=== PATIENT | female | born 1940 | race Caucasian/White ===

== ENCOUNTER 2017-05-15 17:22 | Emergency (ER) | payer MEDICARE, OTHER ==
[~2017-05-15] VITALS: Ht 154.9 cm; Wt 72.1 kg
[2017-05-15] MEDS ORDERED: CLEOCIN HCL300 MG PO (17:46)
[2017-05-15] MEDS ORDERED: NORCO 5-325 TA1 EACH PO (17:46)
== END 2017-05-15 18:32 | disposition home or self-care (01) ==
LOC: ED 17:22
DX: K04.7 Periapical abscess without sinus (principal); Z88.0 Allergy status to penicillin; Z88.2 Allergy status to sulfonamides; Z88.1 Allergy status to other antibiotic agents
CPT/HCPCS: 99283

== ENCOUNTER 2017-07-31 11:48 | Inpatient (IN) | payer MEDICARE, OTHER ==
[~2017-07-31] VITALS: Ht 154.9 cm; Wt 72.1 kg
--- OUTSIDE RECORDS SUMMARY | ~2017-07-31 | XMS | Clinical Summary ---
Demographics + + + | Address | [address] | | | [place] [address] | + + + | Home Phone | | + + + | Preferred Language | Unknown | + + + | Marital Status | | + + + | Buddhist Affiliation | Unknown | + + + | Race | White | + + + | Ethnic Group | Not or | + + + Author + + + | Organization | Unknown | + + + | Address | Unknown | + + + | Phone | Unavailable | + + + Care Team Providers + +------+ + | Care Project Systems Engineer Name | Role | Phone | + +------+ + PP | Unavailable | + +------+ + Source Comments TU is fully live on both [facility] Ambulatory and [facility] InPatient.[facility] Allergies Not on File Current Medications Not on file Active Problems Not on file Social History + +-------+ +--------+------+ | Tobacco Use | Types | Packs/Day | Years | Date | | | | | Used | | + +-------+ +--------+------+ | Never Assessed | | | | | + +-------+ +--------+------+ + + + | Sex Assigned at | Date Recorded | | | | + + + | Not on file | | + + + Plan of Treatment + + + + + | Health Maintenance | Due Date | Last Done | Comments | + + + + + | INFLUENZA VACCINE | | | | | (FLU SHOT) | 7 | | | + + + + + Results Not on filefrom Last 3 Months"
[~2017-07-31 11:48] MED LIST: CLEOCIN HCL300 MG PO; NORCO 5-325 TA1 EACH PO
[2017-09-03] MEDS ORDERED: TYLENOL325 MG PO (15:05)
[2017-09-03] MEDS ORDERED: CALCIUM500 MG PO (15:05)
[2017-09-03] MEDS ORDERED: CARVEDILOL12.5 MG PO (15:06)
[2017-09-03] MEDS ORDERED: ESCITALOPRAM OX20 MG PO (15:06)
[2017-09-03] MEDS ORDERED: CIPRO500 MG PO (15:06)
[2017-09-03] MEDS ORDERED: LEXAPRO20 MG PO (15:07)
[2017-09-03] MEDS ORDERED: LEVOTHYROXINE125 MCG PO (15:07)
[2017-09-03] MEDS ORDERED: MELOXICAM15 MG PO (15:07)
[2017-09-03] MEDS ORDERED: MULTIVITAMINS1 EAC8 PO (15:07)
[2017-09-03] MEDS ORDERED: PROPRANOLOL HCL60 M1 PO (15:08)
[2017-09-03] MEDS ORDERED: PRILOSEC OTC20 MG PO (15:08)
[2017-09-03] MEDS ORDERED: VITAMIN C500 M1 PO (15:09)
[2017-09-03] MEDS ORDERED: VITAMIN D2000 UNI1 PO (15:09)
--- NOTE | 2017-09-03 17:42 | NUR ---
PREADMIT PT NOTE THIS IS A 77 YEAR OLD FEMALE BEING ADMITTED 09/14/17 FOR A RIGHT TOTAL HIP REPLACEMENT PERFORMED BY DR DARCIE SHULTZ. 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 IN [facility]. SHE IS PLANNING ON HER SON BEING HER TO CARE FOR SO SHE CAN HEAL. SHE IS PLANNING ON GOING TO THE [facility] AT [facility] OP PT TOMORROW AND THEN AFTER SURGERY GOING THERE FOR PT. PT HAS A WALK IN SHOWER WITH A BENCH AND HANDHELD SHOWER HEAD. PT IS GOING TO GET A TOILET SEAT RISER. PT HAS REQUESTED ASSISTANCE WITH A FRONT WHEELED WALKER FROM [facility]. I INFORMED HER THIS WOULDN'T BE A PROBLEM. PT DENIED FURTHER QUESTIONS. I TOLD HER I WOULD FOLLOW HER DURING HER STAY IN THE HOSPITAL.
--- NOTE | 2017-09-14 08:46 | NUR ---
09/14/17 0846 Maritza Farah 0833 TO PACU, NONRESPIONSIVE TO VOICE. ORAL AIRWAY IN PLACE. ADDITIONAL AIRWAY ASSIST NEEDED. 0840 NO CHANGE IN PT STATUS 0845 XRAY TO BEDSIDE. CONT AIRWAY ASSIST. NON RESPONSIVE TO VERBAL.
--- NOTE | 2017-09-14 09:21 | NUR ---
MET WITH PT'S SIS IN LAW. FEELS VERY CONFIDENT IN CARE FOR PT HERE. SEEMS TO BE VERY COMFORTABLE HERE. WILL FOLLOW NEEDED
--- NOTE | 2017-09-14 10:51 | NUR ---
PT VERY SLEEPY PULLING LOW TIDAL VOLUMES EVEN ON BIPAP HAD TO INCREASE SETTING AND INCREASED RESPIRATORY RATE, Dr Wood and Special Effects Makeup Artist consulted for patient narcan given and patient tidal volumes and mv increased with good chest rise and fall will continue to monitor if patient becomes apnic again we will obtain blood gases and furthur evaluate if patient need a higher level of support. Rn at bedside will continue to closely monitor this patient .
--- NOTE | 2017-09-14 12:08 | NUR ---
77 YEAR OLD FEMALE PATIENT ADMITTED TO CCU FROM PACU UNDER DR. SHULTZ WITH DX OF TOTAL R HIP ARTHROPLASTY. WAS SLOW TO WAKE POST OP AND WAS GIVEN NARCAN IN PACU, AND PLACE ON BIPAP. IS CURRENTLY ON BIPAP AT 15/10 RATE 16, FIO2 40%. IS ABLE TO FOLLOW COMMANDS. IVF PATIENT TO RIGHT HAND. CRYO CUFF IN PALCE TO RIGHT HIP. ABDUCTOR IS IN PLACE.
--- NOTE | 2017-09-14 13:58 | NUR ---
PT PLACED IN CCU 128 POST-OP FOR CLOSER OBSERVATION. O2 MASK ON, PT NOT AWAKE, BUT AWARE OF MASK. FAMILY PRESENT, SEEM TO BE DEALING APPROPRIATELY. WILL CONTINUE TO FOLLOW
--- NOTE | 2017-09-14 14:10 | NUR ---
BIPAP OFF TO DO ORAL CARE, WITHIN 1 MIN O2 SAT DOWN TO 53. PATIENT IS NOT AWARE OF TREATMENT WILL FOLLOW SOME COMMANDS. NOT SAYING ANY WORDS AT THIS TIME.
--- NOTE | 2017-09-14 16:11 | NUR ---
NARCAN GTT HUNG AT 0,3 MG/HR. EQUALS 37.5 ML HR. FAMILY IN ROOM. ASSESSMENT UNCHANGED. WHITTAKER PATENT. REMAINS ON BIPAP 18/10, FIO2-40% RR-22.
--- NOTE | 2017-09-14 17:00 | NUR ---
IS MORE AWAKE NOW. ORAL CARE GIVEN. DR. YEBOAH HERE TO SEE. NO FUTHER ORDERS NOTED AT THIS TIME.
--- NOTE | 2017-09-14 17:10 | NUR ---
ABG RESULTS, PH-7.31, PCO2-58.9, PO2-114, HCO3-28.6. DR. YEBOAH HERE.
--- NOTE | 2017-09-14 17:34 | NUR ---
BACK ON BIPAP.
--- NOTE | 2017-09-14 18:12 | NUR ---
DR. YEBOAH UPDATED ON PATIENT STATUS. NO FUTHER CHANGES.
--- NOTE | 2017-09-14 18:38 | NUR ---
MORE AWAKE, ORAL CARE GIVEN. DENEIS PAIN OR NAUSEA.
--- NOTE | 2017-09-14 19:11 | NUR ---
NO CHANGES, REPORT GIVEN.
--- NOTE | 2017-09-14 19:55 | NUR ---
AWAKENS EASILY AND ABLE TO STAY AWAKE. OFF CPAP FOR NOW. ABLE TO TAKE SMALL AMT WATER, WANTED TO DRINK MORE BUT ADVISED TO START SLOW.
--- NOTE | 2017-09-14 21:21 | NUR ---
REPOSITIONED TO BACK, NO C/O. NARCAN DECREASED TO 0.4MG/HR. GIVEN WATER AND JIMENEZ WELL.
--- NOTE | 2017-09-14 23:32 | NUR ---
AWAKENS EASILY BUT OTHERWISE SLEEPS MOST OF TIME. REPOSITIONED.
--- NOTE | 2017-09-15 02:29 | NUR ---
NARCAN TITRATED OFF AT 0140. PT AWAKENS EASILY. RR 16.
--- NOTE | 2017-09-15 03:31 | NUR ---
WHEN FIRST AWAKE ASKERE WHERE NAHED (HER ) WAS. REMINDED WAS IN HOSPITAL. ORIENTED AFTER THAT. DENIES PAIN. REPOSITIONED TO L SIDE. 02 CHANGED TO 2 L NC. ENCOURAGED TO DEEP BREATH AND COUGH. CRYO CUFF CONT TO BE IN PLACE TO R HIP. PT DOES C/O GENERALIZED ITCHING. NO RASH NOTED. EXPLAINED WAS POSS SIDE EFFECT OF MEDS.
--- NOTE | 2017-09-15 06:42 | NUR ---
AWAKE ALERT, TALKATIVE. FEELS LIKE GOT A GREAT NIGHTS SLEEP. WAS CONCERNED ABOUT HIP PAIN WITH MOVEMENT. REASURED THAT PAIN CONTROL WAS PLANNED AND TO PLEASE LET US KNOW IF SHE HAD PAIN. PT FELT BETTER.
--- NOTE | 2017-09-15 07:30 | NUR ---
BEDSIDE REPORT RECIEVED. PATIENT IS AWAKE AND W/O C/O.
--- NOTE | 2017-09-15 08:30 | NUR ---
DRESSING TO RIGHT HIP IS INTACT. NO DRAINAGE NOTED. CYRO CUFF HAS BEEN IN PLACE.
--- NOTE | 2017-09-15 08:49 | NUR ---
SITTING UP IN BED WATCHING TV. DENEIS PAIN. TOOK BREAKFAST WELL. ROUTINE MEDS GIVEN.
--- NOTE | 2017-09-15 09:32 | NUR ---
PHYS THERAPY HERE TO WORK WITH PATIENT.
--- NOTE | 2017-09-15 09:35 | NUR ---
SITTING IN CHAIR. STATES SHE FEELS BETTER. IS SOMEWHAT FRUSTRATED REGARDING ABILITY TO FIND WORDS SHE WANTS TO SAY. FAMILY MEMBERS ARE IN ROOM.
--- NOTE | 2017-09-15 12:29 | NUR ---
REMAINS IN CHAIR IS EATING LUNCH. OKAY TO TRANSFER TO MEDICAL FLOOR TODAY. IVF TO SL EARLIER. URINE REMAINS ORANGE IN COLOR.
--- NOTE | 2017-09-15 13:09 | NUR ---
PT SITTING IN CHAIR, TODAY ON RM AIR. AWAKE AND ALERT. LOTS OF FAMILY PRESENT. PT STATED SHE FHAS NO PAIN, WHICH IS SOMETHING SHE MENTIONED THAT SHE HAS NOT EXPERIENCED FOR A LONG TIME. LUNCH CAME, SHE SEEMED INTERESTED-I EXTENDED A BLESSING AND WILL RETURN. SHE SAID SHE WOULD LIKE THAT
--- NOTE | 2017-09-15 15:00 | NUR ---
AMBULATE TO ROOM 111 FROM 127 USING WALKER WITH PHYS THERAPY AND RN WITH PATIENT.
--- NOTE | 2017-09-15 15:15 | NUR ---
REPORT TO MED SURG.
--- NOTE | 2017-09-15 15:24 | NUR ---
PATIENT WALKED OVER FROM CCU WITH WALKER AND STANDBY ASSIST. PATIENT DENIES PAIN, IS NOW IN BED WITH KRYO CUFF, O2 AT 2L WITH DIM LUNG BASES..PATIENT ENCOURAGED TO USE I/S EVERY HOUR AND DOES A GOOD RETURN DEMONSTRATION BUT HAS TO BE REMINDED ON CORRECT USE. PATIENT HAS NOTABLE TREMOR AT BASELINE, REPORTS URINARY INCONTINANCE BASELINE WELL. WHITTAKER CATHETER IS IN PLACE.
--- NOTE | 2017-09-15 18:26 | NUR ---
PATIENT SITTING IN BED, SON AND IN ROOM. VITALS DONE. (SON SEEMS TO "JOKE" BUT IS A BIT RUDE AND SHORT WITH PATIENT) CALL LIGHT IN REACH NO OTHER NEEDS.
--- NOTE | 2017-09-15 18:55 | NUR ---
RECEIVED REPORT FROM RN. PATIENT IS RESTING IN BED, BREATHING IS EVEN AND UNLABORED. DENIES NEEDS AT THIS TIME. FAMILY AT BEDSIDE, CALL LIGHT WITHIN REACH.
--- NOTE | 2017-09-15 19:45 | NUR ---
PATIENT RESTING COMFORTABLY IN BED, BREATHING IS EVEN AND UNLABORED ON 2L O2 VIA NC. DENIES NEEDS AT THIS TIME. PATIENT REPORTS 0/10 PAIN. ASSESSMENT DONE, MEDICATION GIVEN. FAMILY AT BEDSIDE, CALL LIGHT WITHIN REACH.
--- NOTE | 2017-09-15 22:23 | NUR ---
PATIENT RESTING COMFORTABLY IN BED, BREATHING IS EVEN AND UNLABORED. TYLENOL GIVEN. REPORTS 0/10 PAIN. DENIES NEEDS AT THIS TIME. CALL LIGHT WITHIN REACH.
--- NOTE | 2017-09-16 00:06 | NUR ---
PATIENT CALLING OUT, UPON ENTERING ROOM, PATIENT IS SLOUCHED IN BED, APPEARS TO BE UNCOMFORTABLE. WITH ASSISTANCE FROM SECOND RN, PATIENT REPOSITIONED IN BED FOR COMFORT. PATIENT STATES HE FEELS MORE COMFORTABLE. DENIES NEEDS AT THIS TIME. CALL LIGHT WITHIN REACH, BED ALARM ON.
--- NOTE | 2017-09-16 01:23 | NUR ---
PATIENT RESTING COMFORTABLY IN BED, BREATHING IS EVEN AND UNLABORED. FLACC SCORE OF 0. CALL LIGHT WITHIN REACH.
--- NOTE | 2017-09-16 04:00 | NUR ---
PATIENT RESTING COMFORTABLY IN BED, BREATHING IS EVEN AND UNLABORED. DENIES NEEDS AT THIS TIME. REPORTS 0/10 PAIN. CALL LIGHT WITHIN REACH. CRYO-CUFF REFILLED. CALL LIGHT WITHIN REACH, ALL ORDERS IN PLACE.
--- NOTE | 2017-09-16 04:13 | NUR ---
PATIENT'S NIGHT WAS UNEVENTFUL. SHE HAS BEEN RESTING COMFORTABLY IN BED THROUGHOUT SHIFT. VSS, URINE OUTPUT QS. NO COMPLAINTS OF PAIN. PATIENT HAS BEEN ALERT AND ORIENTED ALL NIGHT. HEART RATE AND BP WITHIN NORMAL LIMITS. LUNGS HAVE BEEN CLEAR, WEARS 2L O2 AT NIGHT. LAST BOWEL MOVEMENT WAS ON 09/13, RECEIVING MILK OF MAGNESIA, BOWEL TONES ARE ACTIVE, NON-TENDER. DRESSING REMAINS CDI, CMS INTACT. PATIENT IS A SBA, IV IS SALINE LOCKED. NO ACUTE CHANGES FROM BEGINNING OF SHIFT.
--- NOTE | 2017-09-16 06:41 | NUR ---
ADMINISTERED MEDICATION TO PT, PT STATED THAT SHE DOESNT' WANT TO BE WOKE UP WITH MORNING ROUNDS.
--- NOTE | 2017-09-16 07:36 | NUR ---
REPORT RECEIVED FROM QUIRINO LOPEZ. PT IS AWAKE IN BED WITH VISITOR IN ROOM. QUIRINO LOPEZ IN TO ADMINISTER PAIN MEDS.
--- NOTE | 2017-09-16 07:41 | NUR ---
SPOKE WITH DR. SHULTZ REGARDING PATIENT'S MUSCLE SPASMS IN RIGHT LEG. NO NEW ORDERS REGARDING SPASMS RECEIVED. WHITTAKER ORDER CLARIFIED, WHITTAKER CATHETER IS TO BE REMOVED THIS AM.
--- NOTE | 2017-09-16 09:09 | NUR ---
PT IS AWAKE AND ALERT. AM MEDS ADMINISTERED. REMEDIOS DC'D PER DR SHULTZ ORDER. PT TOLERATED WELL. PT REPORTS INCONTINENCE BASELINE. DEPENDS IN PLACE. SCDS, CRYO, AND WEDGE IN PLACE. PT USES TRAPEEZE TO MOVE SELF UP IN BED. DENIES OTHER NEEDS AT THIS TIME.
--- NOTE | 2017-09-16 10:20 | NUR ---
PT UP IN CHAIR. PHYSICAL THERAPY IN ROOM WORKING WITH PT. VISITOR ALSO IN ROOM.
--- NOTE | 2017-09-16 10:56 | NUR ---
PT SITTING UP IN CHAIR WITH FAMILY IN ROOM. PT CURRENTLY ON ROOM AIR. SAT WAS 97% AFTER PHYSICAL THERAPY. CRYO REFILLED. WATER CUP REFILLED. PT DENIES OTHER NEEDS AT THIS TIME.
--- NOTE | 2017-09-16 11:02 | NUR ---
PT WALKED IN LOVE WITH PHYS. THER. IN ROOM. OK'D TO HAVE PILLOW BETWEEN LEGS INSTEAD OF WEDGE. PT DENIES FURTHER CONCERNS.
--- NOTE | 2017-09-16 11:32 | NUR ---
PT UP TO BATHROOM. SBA W/FWW. OXY X2 GIVEN FOR PAIN 6/10 WITH MOVEMENT. PT SITTING UP IN CHAIR WORKING WITH OCCUPATIONAL THERAPY.
--- NOTE | 2017-09-16 11:40 | NUR ---
THERAPY IN ROOM. PATIENT HAS BEEN VERY BUSY THIS MORNING WITH THERAPY AND WALKING. VITALS DONE, FRESH WATER GIVEN. CRYO CHECKED CALL LIGHT IN REACH. SITTING UP IN CHAIR FOR LUNCH. VISITORS IN ROOM.
--- NOTE | 2017-09-16 12:48 | NUR ---
PT ATE MOST OF LUNCH. UP IN CHAIR. DENIES N\V. RATES PAIN A ZERO WHILE STILL. VISITORS IN ROOM
--- NOTE | 2017-09-16 13:13 | NUR ---
PT SITTING IN CHAIR, VISITING WITH FAMILY. SAID SHE SLEPT WELL, AND DID P.T. AND KNOWS IT WILL BE AGAIN LATER. SEEMS TO HAVE GOOD ATTITUDE, GOOD VISIT-WILL CONTINUE TO FOLLOW
--- NOTE | 2017-09-16 13:59 | NUR ---
PT BACK TO BED FROM CHAIR. SBA W/FWW. CRYO, AES, AND SCDS IN PLACE. WEDGE BETWEEN LEGS. REINSURANCE CLERK PRESTON REFILLED CRYO. DR YEBOAH IN TO SEE PT. PT DENIES PAIN AND OTHER NEEDS AT THIS TIME.
--- NOTE | 2017-09-16 14:05 | NUR ---
DR EDILIA PEDROZA STUDENT DARIUS IN ROOM. PATIENT TOLD THIS COLLEGE PROFESSOR SHE SHE WASN'T READY TO GO HOME JUST YET. DISCHARGE PLANNING IN ROOM TO TALK WITH PATIENT. CALL LIGHT IN REACH.
--- NOTE | 2017-09-16 15:40 | NUR ---
PT RESTING IN BED. REPORTS PAIN 0/10. PT ENCOURAGED TO AMBULATE. NEEDS TO BE UP TO BATHROOM BEFORE DINNER. PT NEEDS REMINDERS TO USE BATHROOM OR WILL HOLD IT IN.
--- NOTE | 2017-09-16 16:49 | NUR ---
PT BACK TO BED FROM BATHROOM. SBA W/FWW. PT CAN BE IMPULSIVE AT TIMES. DID NOT CALL FOR HELP BACK TO BED. PT SITTING UP IN BED, ORAL INTAKE ENCOURAGED.
--- NOTE | 2017-09-16 17:33 | NUR ---
PATIENT SITTING UP IN BED EATING DINNER, TALKING ON THE PHONE. VITALS,I/O'S FRESH ICE WATER,CRYO FILLED. PATIENT'S BP WAS SLIGHTLY HIGHER THAN PREVIOUS. QUIRINO INTERIANO WAS NOTIFIED. CALL LIGHT IN REACH.
--- NOTE | 2017-09-16 17:50 | NUR ---
TALKED TO PATIENT ABOUT IMPORTANCE OF FLUID INTAKE, POSSIBLY DRINKING SOME JUICE, PER QUIRINO INTERIANO. PATIENT HAS 2 CUPS OF WATER AND A PEPSI, AGREED SHE WOULD DRINK IT ALL AND DECLINED JUICE.
--- NOTE | 2017-09-16 17:51 | NUR ---
PT UP WITH PHYSICAL THERAPY X1 TODAY. PAIN CONTROLLED WITH PRN OXY AND SCHEDULED DICLOFENAC. SBA W/FWW, BUT CAN BE IMPULSIVE. DOES NOT ALWAYS CALL APPROPRIATELY TO GET BACK TO BED. CRYO AND SCD'S IN PLACE. REMEDIOS BROWN'D THIS AM. PT REPORTS BASELINE INCONTINENCE. DEPENDS IN PLACE. INCONTINENT OF STOOL X1. ORAL INTAKE POOR SECOND HALF OF DAY, ENCOURAGED. PLAN TO DC TOMORROW. PT HAS SOME ANXIETY ABOUT GOING HOME. ON ROOM AIR.
--- NOTE | 2017-09-16 18:58 | NUR ---
ASSISTED PATIENT TO BATHROOM WITH QUIRINO INTERIANO. PATIENT HAD A VERY LG BM, CHANGED BRIEFS. SON HERE TO VISIT FOR A SHORT TIME, WILL BE BACK IN THE AM. CALL LIGHT IN REACH.
--- NOTE | 2017-09-16 19:30 | NUR ---
RECEIVED REPORT FROM RN. PATIENT IS RESTING COMFORTABLY IN BED, BREATHING IS EVEN AND UNLABORED. DENIES NEEDS AT THIS TIME. REPORTS 0/10 PAIN. CALL LIGHT WITHIN REAH.
--- NOTE | 2017-09-16 22:01 | NUR ---
PATIENT RESTING IN BED, BREATHING IS EVEN AND UNLABORED. REPORTS 4/10 PAIN IN RIGHT LEG, SCHEDULED TYLENOL GIVEN. DENIES FURTHER NEEDS. ASSESSMENT DONE. CALL LIGHT WITHIN REACH. ALL ORDERS IN PLACE.
--- NOTE | 2017-09-16 23:17 | NUR ---
PATIENT FOUND IN CHAIR, BREATHING IS EVEN AND UNLABORED. PATIENT STATES THAT SHE GOT INTO THE CHAIR BY HERSELF. RE-EDUCATED PATIENT ABOUT SAFETY AND THE IMPORTANCE OF CALLING STAFF FOR ASSISTANCE. PATIENT DENIES NEEDS AT THIS TIME. CHAIR ALARM ON. CALL LIGHT WITHIN REACH.
--- NOTE | 2017-09-17 00:06 | NUR ---
ASSISTED PATIENT TO BATHROOM WITH 1PA/FWW. NOW RESTING IN CHAIR AGAIN, BREATHING IS EVEN AND UNLABORED. PATIENT DENIES PAIN AT REST. DENIES FURTHER NEEDS. REFUSING TO SLEEP IN BED AT THIS TIME. CALL LIGHT WITHIN REACH, CHAIR ALARM ON.
--- NOTE | 2017-09-17 01:10 | NUR ---
PATIENT RESTING COMFORTABLY IN BED, BREATHING IS EVEN AND UNLABORED. FLACC SCORE OF 0. CALL LIGHT WITHIN REACH, CHAIR ALARM ON.
--- NOTE | 2017-09-17 04:17 | NUR ---
PATIENT RESTING IN CHAIR, BREATHING IS EVEN AND UNLABORED. FLACC SCORE OF 0. WHILE AWAKE, PATIENT REFUSES TO REST IN BED AND STATES "I JUST GET SO ANXIOUS IN THAT BED. IT IS VERY UNCOMFORTABLE." ICE IN PLACE. CALL LIGHT WITHIN REACH, CHAIR ALARM ON.
--- NOTE | 2017-09-17 04:26 | NUR ---
PATIENT'S NIGHT WAS UNEVENTFUL. SHE HAS BEEN RESTING IN CHAIR FOR MAJORITY OF SHIFT. VSS, URINE OUTPUT QS. PAIN WELL CONTROLLED. ALERT AND ORIENTED, COARSE HAND TREMORS NOTED, PATIENT STATES THAT THE TREMORS ARE HER BASELINE. PATIENT IS IMPULSIVE AT TIMES, REQUIRES BED ALARM / CHAIR ALARM. LUNGS ARE CLEAR, O2 SATURATION HAS BEEN APPROPRIATE ON ROOM AIR. DRESSING IS CDI, CMS INTACT. PATIENT REQUIRES 1PA/FWW DUE TO UNSTEADY GAIT. NO ACUTE CHANGES FROM BEGINNING OF SHIFT.
--- NOTE | 2017-09-17 05:33 | NUR ---
PATIENT RESTING COMFORTABLY IN BED, BREATHING IS EVEN AND UNLABORED. DENIES NEEDS AT THIS TIME. PATIENT WISHES TO REMAIN IN CHAIR, STATES THAT SHE DOES NOT LIKE CRYOCUFF, ICE PACK APPLIED TO RIGHT HIP. VITALS AND I&O DONE. CALL LIGHT WITHIN REACH, CHAIR ALARM ON.
--- NOTE | 2017-09-17 07:27 | NUR ---
RECIEVED REPORT FROM TRAY SERVICE WORKER NURSE. PATIENT RESTING UP IN CHAIR. ORANGE JUICE DELIVERED. DENIES FURTHER NEEDS. CALL LIGHT IN REACH.
--- NOTE | 2017-09-17 07:46 | NUR ---
PATIENT RESTING UP IN CHAIR. ICE BAG TO R HIP. DRESSING DRY AND INTACT. +1 EDEMA IN R KNEE/THIGH. PALPABLE PEDAL PULSES. TEDS IN PLACE. PATIENT STATES SHE HAS NO PAIN AT THE MOMENT, BUT SHE HAS BEEN EXPERIENCING MUSCLE SPASMS IN HER R LEG FROM KNEE TO THIGH. MD AWARE. LUNGS CLEAR, HR REG, ACTIVE BS. PATIENT REFUSED MIRALAX THIS MORNING, STATES SHE HAD 3 BMS YESTERDAY. MEAL TRAY SERVED. DEMONSTRATED PROPER USE OF IS. DENIES FURTHER NEEDS. CALL LIGHT IN REACH.
--- NOTE | 2017-09-17 08:18 | NUR ---
REFILLED PATIENT'S CRYO ALSO GAVE HER SOME MORE ICE WATER. CHANGED HER BED LINENS. SHOWER LATER.
--- NOTE | 2017-09-17 08:40 | NUR ---
PATIENT RESTING UP IN CHAIR. SON IN ROOM. MD AWARE PATIENT DOES NOT HAVE IV ACCESS. IV REMOVED D/T LEAKING. CALL LIGHT IN REACH.
--- NOTE | 2017-09-17 09:45 | NUR ---
PATIENT STILL C/O INTERMITTENT MUSCLE SPASMS, STATES THEY ARE "VIOLENT" AT TIMES. [employer]AL[employer] ADMINISTERED. SUPERVISED AMBULATION AROUND [facility] WITH [facility]. PATIENT TOLERATED WELL. STATES HER HIP FEELS "GOOD" WHILE WALKING. PATIENT NOW WORKING WITH PHYSICAL THERAPY.
--- NOTE | 2017-09-17 10:51 | NUR ---
PATIENT SITTING UP IN CHAIR PLAYING A CARD GAME ON HER IPAD. DENIES NEEDS. CALL LIGHT IN REACH.
--- NOTE | 2017-09-17 10:57 | NUR ---
FAXED CHART NOTES TO INCLUDE FACESHEET, ORDERS, H AND P, PROG NOTES, IMAGING, PT AND OT EVAL AND NOTES SENT TO [facility] FOR A FRONT WHEELED WALKER. TALKED TO KINGS (?) AT [facility]. ALSO RECIEVED FAX CONFIRMATION.
--- NOTE | 2017-09-17 11:39 | NUR ---
PASTOR DOMINGO IN TO SEE PATIENT.
--- NOTE | 2017-09-17 12:20 | NUR ---
PATIENT NOT INTERESTED IN THE LUNCH SHE ORDERED. "NOTHING SOUNDS GOOD." I ORDERED HER A PROTEIN SHAKE AND FRUIT.
--- NOTE | 2017-09-17 13:01 | NUR ---
PT GIVEN ODT ZOFRAN FOR NAUSEA
--- NOTE | 2017-09-17 13:20 | NUR ---
PT SITTING IN CHAIR, ALONE, ALERT AND ORIENTED. HAD A GOOD VISIT-JUST HER. SHARED HOW DIFFICULT IT IS TO SLEEP, AND NOTHING TASTES GOOD. PT DID SHARE THOUGH HOW MUCH LESS PAIN SHE HAS AND IS EXCITED TO WALK AND REGAIN SOME MOBILITY SHE HAS LOST. I MENTIONED ICE CREAM AND SHE GOT A SPARKLE IN HER EYE. QUIRINO JACOBS BROUGHT HER IN SOME-BIG SMILE! HAD PRAYER WITH PT, NIECE CAME IN TO VISIT. WILL CONTINUE TO FOLLOW NEEDED 1
--- NOTE | 2017-09-17 13:47 | NUR ---
PATIENT UP TO BATHROOM WITH ASSIST.
--- NOTE | 2017-09-17 14:10 | NUR ---
PT WALKED ONE FULL LENGTH OF THE LOVE WITH WALKER AND GAIT BELT ON. PT THEN RETURNED TO ROOM AND IS NOW RESTING IN BED WITH CALL LIGHT IN REACH AND FAMILY IN ROOM.
--- NOTE | 2017-09-17 15:36 | NUR ---
PATIENT AMBULATING HALLWAY WITH ASSIST FROM COMMERCIAL PROPERTY MANAGER. STILL C/O MUSCLE SPASMS.
--- NOTE | 2017-09-17 16:33 | NUR ---
PATIENT IN SHOWER, STATES SHE HAS NOT HAD A MUSCLE CRAMP SINCE SHE HAS BEEN UP WALKING. DENIES NEEDS.
--- NOTE | 2017-09-17 16:56 | NUR ---
PATIENT TOOK A SHOWER. GOT HER A NEW SODA.
--- NOTE | 2017-09-17 17:36 | NUR ---
PT RECIEVED HER WALKER THIS AFTERNOON. PHYSICAL THERAPY WORKED WITH HER AND THEN THIS AFTERNOON, STOPPED AND INFORMED ME THAT THE WALKER WAS TOO BIG FOR THE PT EVEN ON ITS LOWEST SETTINGS. I CALLED [facility] INFORMED THEM OF THIS AND THEY ARE GOING TO BRING A MELODY SIZED WALKER TO PT AND WAS ADVISED BY PHYSICAL THERAPY. INFORMED PT OF THIS.
--- NOTE | 2017-09-17 18:27 | NUR ---
PATIENT EATING DINNER IN BED. DENIES NEEDS. DENIES PAIN. CALL LIGHT IN REACH.
--- NOTE | 2017-09-17 20:00 | NUR ---
RECEIVED REPORT AT 1900, FOUND PT IN BED ON THE PHONE.PT DENIED PAIN AT THAT TIME.
--- NOTE | 2017-09-17 22:00 | NUR ---
V/S ARE WDL, ALL LOBES ARE CLEAR, ABD SOUNDS PRESENT, RIGHT HIP HAS MINIMAL EDEMA, DRESSING IS C/D/I. RIGHT PEDIS PULSE IS +2, NO PERIPHERAL EDEMA NOTED OTHERWISE, PT IS ON RA. PT DENIES ANY PAIN AND OR MUSCLE SPASMS AT THIS TIME. NO NEW CONCERNS SO FAR.
--- NOTE | 2017-09-18 | NUR ---
PT IS SLEEPING AT THIS TIME.
--- NOTE | 2017-09-18 02:00 | NUR ---
PT IS SLEEPING.
--- NOTE | 2017-09-18 05:29 | NUR ---
V/S ARE WDL, PT SLEPT ALL NIGHT OVERALL. PT DENIED PAIN ALL SHIFT. ALL LOBES ARE CLEAR. DRESSING ON RIGHT HIP IS C/D/I. THERE IS LITTLE EDEMA PRESENT. PT MOVES WELL OVERALL. RIGHT PEDIS PULSES ARE +1 WITH TOES WARM TO TOUCH. NO NEW ISSUES NOTED SO FAR.
--- NOTE | 2017-09-18 05:48 | NUR ---
Pt up to brp, one person assist and fww. voided, did own betty care. Back to bed, dressing r hip cdi. cryocuff to area. No c/o pain or n/v. Tolerated very well
[2017-09-18] MEDS ORDERED: XARELTO10 MG PO (07:38)
[2017-09-18] MEDS ORDERED: OXYCODONE HCL5 MG PO (07:38)
[2017-09-18] MEDS ORDERED: DOCUSATE SODIU250 MG PO (07:39)
[2017-09-18] MEDS ORDERED: MIRALAX17 GM PO (07:39)
--- NOTE | 2017-09-18 07:43 | NUR ---
ANTONIO HOSE APPLIED TO LEGS BILATERALLY, PATIENT THEN UP TO RECLINER. PLAN TO DISCHARGE TODAY.
--- NOTE | 2017-09-18 08:33 | NUR ---
PATIENT IS SITTING UP IN HER CHAIR. WASHED HER FACE. BRUSHING HER TEETH. REFUSED SHOWER TODAY. CHECKED CRYO AND IT IS GOOD.
--- NOTE | 2017-09-18 11:40 | NUR ---
PROVIDED PATIENT AND SON DISCHARGE EDUCATION, ANSWERED QUESTIONS AND CONCERNS. PATIENT WILL RETURN TO [facility] AFTER HE FILLS SCRIPTS. PATIENT NOW RESTING IN RECLINER. CALL LIGHT IN REACH.
--- NOTE | 2017-09-18 15:30 | NUR ---
FAXED OUTPATIENT THERAPY ORDER, CLINICALS TO [facility]. FAX CONFIRMATION RECEIVED. CALLED AND SPOKE WITH AZUL WHO STATES THEY DID RECEIVE FAX.
--- NOTE | 2017-09-28 08:37 | OR ---
[facility] [address], [place] [address] Signed DATE OF OPERATION: 09/14/2017 SURGEON: Jeffrey Wood MD PREOPERATIVE DIAGNOSIS: Degenerative joint disease, right hip. POSTOPERATIVE DIAGNOSIS: Degenerative joint disease, right hip. PROCEDURE PERFORMED: Right total hip arthroplasty. TRAINING MGR: Safia Carvalho PA-C. Safia was present and critical for positioning, retraction, and wound closure. ANESTHESIA: Spinal. BLOOD LOSS: 150 mL. IMPLANTS: Jonh size #7 Secure-Fit advanced with the 52 mm PSL cup, -2.5 ceramic head. BRIEF HISTORY: Peter is a 77-year-old female with progressive worsening of osteoarthritis. She received medical clearance and wished to proceed with operative intervention to improve her life. Once consent was obtained, she was taken to the operating room. After adequate anesthesia, she was placed on the operating room table in the left lateral decubitus position. All downside pressure points well padded. An axillary roll was placed. The leg was prepped and draped in the standard sterile fashion. The hip was approached anterolaterally through a 5 inch incision, secured through skin and subcutaneous tissue. IT band was split longitudinally. The vastus lateralis was split from the tip of the trochanter distally and elevated subperiosteally around the level of the lesser trochanter. The gluteus medius was split bluntly in the gluteus minimus and capsule were split sharply from the tip of the trochanter to the acetabular rim and peeled off the anterior neck. Several loose bodies were removed as we went. The hip was then dislocated. Femoral neck cut made 1 fingerbreadth above the lesser trochanter. Electronically Signed By: JEFFREY WOOD MD 09/28/17 0837 PATIENT NAME: PETER JACKSON OPERATIVE REPORT DATE OF : 38 REPORT #: [id number] PHYSICIAN: JEFFREY WOOD MD PCP: YESI JANSEN MD REPORT IS CONFIDENTIAL AND NOT TO BE RELEASED WITHOUT AUTHORIZATION [facility] [address], [place] [address] Signed The head was removed. The periacetabular soft tissue was removed. The acetabulum was then reamed up to a 52 and a 52 cup was impacted into the acetabulum and placed at 45 degrees of abduction and 15 degrees of anteversion. A single 6.5 mm screw was placed in the posterosuperior column. The liner was snapped into position. Attention was then turned to the proximal femur. This was opened using a cookie cutter, followed by the Charnley awl. It was then reamed sequentially up to an 8 and broached to a 7. The 7 was pretty significantly tight and did not feel weak, but an 8 in. The broach was left in position. The standard offset neck and posterior head were positioned. The hip was a little bit tight particularly in extension. This was switched to 2.5. The hip was dislocated and the trials removed. The final stem was impacted until it was well seated. The -2.5 head was then positioned and the hip was reduced. Excellent leg lengths were noted. The range of motion was normal, and there was no tightness in extension. She has a negative Shuck. The hip was irrigated at intervals throughout the procedure. A total of 3 L of antibiotic irrigation was used. The periarticular soft tissues were injected with 100 mL ropivacaine and Toradol mixture. It was interesting to note that about 2 minutes after this was injected, she did get an increase in heart rate and blood pressure. The capsule was then closed using #1 Vicryl. The vastus and IT band layers were closed independently using #2 Stratafix subcutaneous tissue with 0 Stratafix and skin with emeterio. The wound was dressed with Mepilex Ag dressing, Op-Site, and hip abduction brace. She was taken to the recovery room in satisfactory condition. All sponge, needle, and instrument counts were correct. Jeffrey Wood MD BA/SARANYAL /[id number] Copies: ~ Electronically Signed By: JEFFREY WOOD MD 09/28/17 0837 PATIENT NAME: PETER JACKSON OPERATIVE REPORT DATE OF : 38 REPORT #: [id number] PHYSICIAN: JEFFREY WOOD MD PCP: YESI JANSEN MD REPORT IS CONFIDENTIAL AND NOT TO BE RELEASED WITHOUT AUTHORIZATION
== END 2017-09-18 12:20 | disposition home or self-care (01) | DRG 469 ==
LOC: DSVR 09-14 06:17 → MS 09-14 06:17 → CCU 09-14 12:00 → MS 09-15 14:50
PROVIDERS: ADMIT Specialist
PROC: 5A09357 Assistance with Respiratory Ventilation, Less than 24 Consecutive Hours, Continuous Positive Airway Pressure (ICD-10-PCS; 2017-09-14)
PROC: 0SR90JA Replacement of Right Hip Joint with Synthetic Substitute, Uncemented, Open Approach (ICD-10-PCS; principal; 2017-09-14 06:45)
DX: M16.11 Unilateral primary osteoarthritis, right hip (principal); J95.821 Acute postprocedural respiratory failure; I10 Essential (primary) hypertension; E03.9 Hypothyroidism, unspecified; Z87.891 Personal history of nicotine dependence; Z88.0 Allergy status to penicillin
CPT/HCPCS: 01214; 36415; 36600; 72170; 80048; 82803; 85025; 94660; 94762; 97110; 97116; 97161; 97165; 97530; 97535; C1776; G8978; G8979; G8987; G8988; J0690; J0735; J1100; J1885; J2250; J2274; J2310; J2405; J2704; J2765; J3010; J7060; J7120

== ENCOUNTER 2018-12-09 12:05 | Day surgery (SDC) | payer MEDICARE, OTHER ==
[~2018-12-09] VITALS: Ht 154.9 cm; Wt 74.8 kg
--- NOTE | ~2018-12-09 | OR ---
[facility] [address], [place] [address] Draft DATE OF OPERATION: 12/09/2018 SURGEON: Man Dickson MD PREOPERATIVE DIAGNOSIS: Family history of colon cancer (father). POSTOPERATIVE DIAGNOSES: 1. Polyps x4 (small). 2. Extensive diverticulosis (difficult sigmoid). 3. Internal hemorrhoids. PROCEDURE: Total colonoscopy to cecum with cold morcellation polypectomy x3 and cold snare polypectomy x1. INDICATION: This 78-year-old white woman is a patient of Dr. Segundo and known to me from the past. She last underwent colonoscopy in 2007. She has family history of colon cancer in her father, likely a rectal cancer. She is generally symptom-free currently. She is admitted to undergo surveillance colonoscopy, understanding the risks of bleeding, infection, and perforation. FINDINGS: The prep was quite good. Complete colonoscopy was undertaken of the cecum that was challenging in passage of the scope through the sigmoid area due to extensive diverticulosis. She had four small polyps, all of them excised entirely, one in the cecum, one in the proximal descending colon, another in sigmoid, and another in the mid rectum. There were also significant hemorrhoidal changes. DESCRIPTION OF PROCEDURE: The patient was brought to the endoscopy suite and placed in lateral decubitus position given intravenous sedation to the point of slurred speech and nystagmus. She received preoperative antibiotic Ancef due to right total hip replacement. Digital rectal examination was found to be normal. An Olympus video colonoscope was passed in the rectum and manipulated throughout the colon. Passage to the sigmoid was challenging due to angulation deformity related to extensive diverticulosis. Ultimately, the sigmoid was passed and passage of scope PATIENT NAME: PETER JACKSON OPERATIVE REPORT DATE OF : 38 REPORT #: [id number] PHYSICIAN: MAN DICKSON MD PCP: YESI SEGUNDO MD REPORT IS CONFIDENTIAL AND NOT TO BE RELEASED WITHOUT AUTHORIZATION [facility] [address], [place] [address] Draft beyond this was rather straightforward. The cecum was intubated and irrigation undertaken. There were few pills that remained whole in the cecum. There was a very small polyp noted and it was excised with cold morcellation technique. Scope was then withdrawn from that point and examination undertaken. There were no abnormalities until the proximal descending colon where a small polyp, probably hyperplastic was noted, so this was excised with cold morcellation technique. Scope was further withdrawn noting diverticula of the left colon and sigmoid, once again at 20 cm from the anal verge, a larger sessile polyp. This was excised with cold snare technique. Photographs were taken. Scope was further withdrawn and a mid rectal polyp was noted. This was small, but likely adenomatous. This was excised with cold morcellation technique as well. Retroflexed view was undertaken showing internal hemorrhoidal changes. Scope was removed and the patient was taken to recovery room in good condition. CONCLUDING DIAGNOSIS: Repeat colonoscopy in 5 years if clinically appropriate based on her projected age of 83 years. This is in part related to polyps and also family history. I would recommend high-fiber diet regarding diverticular disease. If she should develop rectal bleeding, hemorrhoidal banding could be undertaken. MD LYNDON Ellis/MODL /[id number] cc: Yesi Segundo MD Copies: YESI SEGUNDO MD ~ PATIENT NAME: PETER JACKSON OPERATIVE REPORT DATE OF : 38 REPORT #: [id number] PHYSICIAN: MAN DICKSON MD PCP: YESI SEGUNDO MD REPORT IS CONFIDENTIAL AND NOT TO BE RELEASED WITHOUT AUTHORIZATION
[~2018-12-09 12:05] MED LIST changes: +CALCIUM500 MG PO; +CARVEDILOL12.5 MG PO; +CIPRO500 MG PO; +DOCUSATE SODIU250 MG PO; +ESCITALOPRAM OX20 MG PO; +LEVOTHYROXINE125 MCG PO; +LEXAPRO20 MG PO; +MELOXICAM15 MG PO; +MIRALAX17 GM PO; +MULTIVITAMINS1 EAC8 PO; +OXYCODONE HCL5 MG PO; +PRILOSEC OTC20 MG PO; +PROPRANOLOL HCL60 M1 PO; +TYLENOL325 MG PO; +VITAMIN C500 M1 PO; +VITAMIN D2000 UNI1 PO; +XARELTO10 MG PO
--- NOTE | 2018-12-09 14:32 | NUR ---
12/09/18 1431 Chuyita Santos 1427 PATIENT ARRIVES TO PACU AWAKE, BUT DROWSY, THEN BACK TO SLEEP. RESP EVEN AND UNLABORED, NC AT 2 LITERS TURNED OFF.
--- NOTE | 2018-12-09 17:45 | NUR ---
HAS STAYED X2HRS POST RAMAZICON. AAOX3. FAMILY WITH HER. HAS BEEN AMB WELL. TAKING PO WELL. WANTS TO GO HOME.
== END 2018-12-09 17:40 | disposition home or self-care (01) ==
LOC: DS 12:05 → OPS 12:05 → DS 13:00 → OPS 13:00
PROVIDERS: Surgery
PROC: 0DBG8ZZ Excision of Left Large Intestine, Via Natural or Artificial Opening Endoscopic (ICD-10-PCS; 2018-12-09)
PROC: 0DBE8ZZ Excision of Large Intestine, Via Natural or Artificial Opening Endoscopic (ICD-10-PCS; 2018-12-09)
PROC: 0DBP8ZZ Excision of Rectum, Via Natural or Artificial Opening Endoscopic (ICD-10-PCS; 2018-12-09)
PROC: 0DBH8ZZ Excision of Cecum, Via Natural or Artificial Opening Endoscopic (ICD-10-PCS; principal; 2018-12-09 13:00)
DX: Z12.11 Encounter for screening for malignant neoplasm of colon (principal); D12.0 Benign neoplasm of cecum; D12.4 Benign neoplasm of descending colon; D12.6 Benign neoplasm of colon, unspecified; K62.1 Rectal polyp; K64.8 Other hemorrhoids; K57.30 Diverticulosis of large intestine without perforation or abscess without bleeding; I10 Essential (primary) hypertension; E03.9 Hypothyroidism, unspecified; Z88.0 Allergy status to penicillin; Z88.2 Allergy status to sulfonamides; Z88.1 Allergy status to other antibiotic agents; Z79.899 Other long term (current) drug therapy; Z80.0 Family history of malignant neoplasm of digestive organs; Z98.890 Other specified postprocedural states
CPT/HCPCS: 99153; G0500; J0690; J2250; J3010; J7120

== ENCOUNTER 2022-12-21 09:13 | Emergency (ER) | payer MEDICARE, OTHER ==
[~2022-12-21] VITALS: Ht 154.9 cm; Wt 74.8 kg
[2022-12-21] MEDS ORDERED: LEVOFLOXACIN500 MG PO (10:58)
[2022-12-21 12:03] VITALS: BP 161/74
--- NOTE | 2022-12-21 18:30 | EKG ---
[facility] [address] [facility] [place] [address] Signed Normal sinus rhythm Incomplete right bundle branch block Borderline ECG When compared with ECG of 03-SEP-2017 13:31, Incomplete right bundle branch block is now present Confirmed by Jacky Power MD () on 12/21/2022 6:30:30 PM Electronically Signed By: JACKY POWER MD 12/21/221829 PATIENT NAME: PETER JACKSON Electrocardiogram DATE OF : 38 PHYSICIAN: JACKY POWER MD REPORT #: [id number] REPORT IS CONFIDENTIAL AND NOT TO BE RELEASED WITHOUT AUTHORIZATION
== END 2022-12-21 12:06 | disposition home or self-care (01) ==
LOC: ED 09:13
DX: J20.9 Acute bronchitis, unspecified (principal); I10 Essential (primary) hypertension; Z88.0 Allergy status to penicillin; Z88.2 Allergy status to sulfonamides; Z88.8 Allergy status to other drugs, medicaments and biological substances; Z79.890 Hormone replacement therapy; Z79.899 Other long term (current) drug therapy; Z87.891 Personal history of nicotine dependence
CPT/HCPCS: 36415; 71045; 80053; 83880; 85025; 93005; 93010; 94640; 99285-25

== ENCOUNTER 2024-04-29 15:12 | Emergency (ER) | payer MEDICARE, OTHER ==
[~2024-04-29] VITALS: Ht 154.9 cm; Wt 75.4 kg
[~2024-04-29 15:12] MED LIST changes: +LEVOFLOXACIN500 MG PO
[2024-04-29] MEDS ORDERED: BENZONATATE200 MG PO (15:37)
[2024-04-29 16:34] LABS: BILIRUBIN, URINE NEGATIVE (negative); BLOOD/HGB, URINE NEGATIVE (Negative); EOSINOPHILS 3.3 % (0-6); HEMATOCRIT 36.1 % (35.0-50.0); HEMOGLOBIN 12.3 g/dL (12.0-18.0); KETONE, URINE NEGATIVE (Negative); LEUK ESTERASE, URINE NEGATIVE (negative); LYMPHOCYTES 30.2 % (24-44); MCH 30.4 (27-36); MCV 89.4 fl (81-99); MONOCYTES 7.1 % (0-12); NEUTROPHILS 58.4 % (39-80); NITRITE, URINE POSITIVE (negative); PLATELET COUNT 226 K/uL (140-440); RBC 4.04 M/ul (4.3-5.7)
[2024-04-29 16:42] LABS: BACTERIA, URINE 2+ /hpf (negative); CASTS, URINE NONE SEEN \\lpf; CRYSTALS, URINE NONE SEEN (0-1+); RED BLOOD CELLS, URINE 0-1 /hpf (0-5); WHITE BLOOD CELLS, URINE 21-40 /HPF (0-5)
[2024-04-29 16:43] LABS: COLLECTION TYPE, URINE CLEAN CATCH; REFLEX CULTURE, URINE Yes (No)
[2024-04-29 16:49] LABS: ALBUMIN 3.3 g/dL (3.4-5.0); ALBUMIN/GLOBULIN RATIO 0.89 (1.1-2.4); ANION GAP 11.2 (7-21); BILIRUBIN, TOTAL 0.3 ng/dL (0.2-1.0); BUN/CREATININE RATIO 22.85 (6.0-28.6); CALCIUM 9.8 mg/dL (8.5-10.1); CREATININE, SERUM 0.7 mg/dL (0.55-1.02); POTASSIUM 4.2 mmol/L (3.5-5.1)
[2024-04-29] MEDS ORDERED: PAXLOVID 150-11 EAC1 PO (17:59)
[2024-04-29 18:45] VITALS: BP 184/69
== END 2024-04-29 18:45 | disposition home or self-care (01) ==
LOC: ED 15:12
PROVIDERS: Emergency Medicine
DX: U07.1 COVID-19 (principal); I10 Essential (primary) hypertension; E03.9 Hypothyroidism, unspecified; Z87.891 Personal history of nicotine dependence; Z88.0 Allergy status to penicillin; Z88.2 Allergy status to sulfonamides; Z88.1 Allergy status to other antibiotic agents; Z88.5 Allergy status to narcotic agent; Z79.890 Hormone replacement therapy; Z79.899 Other long term (current) drug therapy
CPT/HCPCS: 36415; 70450; 71045; 80053; 81001; 85025; 87077; 87088; 87186; 99285-25; U0002